=== PATIENT | male | born 1965 | race Caucasian/White ===

== ENCOUNTER 2022-10-06 21:12 | Emergency (ER) | payer MEDICAID ==
[2022-10-06 22:03] LABS: ESTIMATED GFR 71 mL/min (>60); TROPONIN I HIGH SENSITIVITY 22.2 pg/mL (<=60.3)
[2022-10-06 22:19] LABS: CORONAVIRUS COVID-19 NAA NEGATIVE (NEGATIVE)
== END 2022-10-06 23:24 | disposition home or self-care (01) ==
LOC: JP.ED 21:12
DX: K21.00 Gastro-esophageal reflux disease with esophagitis, without bleeding (principal); I10 Essential (primary) hypertension; F17.210 Nicotine dependence, cigarettes, uncomplicated; E66.9 Obesity, unspecified; Z68.34 Body mass index [BMI] 34.0-34.9, adult; Z79.82 Long term (current) use of aspirin; Z79.899 Other long term (current) drug therapy; Z20.822 Contact with and (suspected) exposure to COVID-19
CPT/HCPCS: 0241U; 36415; 71046; 80053; 84484; 85025; 85379; 85610; 85730; 86140; 93005; 99285

== ENCOUNTER 2023-05-07 18:08 | Emergency (ER) | payer MEDICAID ==
[2023-05-07] MEDS ORDERED: Morphine 4 MG/ML Syringe IVPUSH PRN (18:21)
[2023-05-07] MEDS ORDERED: Nitroglycerin 0.4 MG Tab.SL SL PRN (18:21)
[2023-05-07] MEDS ORDERED: Aspirin 81 MG Tab.Chew PO ONE (18:21)
[2023-05-07 18:37] LABS: BASOPHILS ABSOLUTE AUTO 0.08 K/uL (0.00-0.10); BASOPHILS PERCENT AUTO 0.4 % (0.1-1.3); EOSINOPHILS ABSOLUTE AUTO 0.27 K/uL (0.00-0.40); EOSINOPHILS PERCENT AUTO 1.2 % (0.0-5.4); HEMATOCRIT 41.5 % (38.4-49.7); HEMOGLOBIN 14.1 g/dL (12.9-16.9); IMMATURE GRAN ABSOLUTE AUTO 0.17 K/uL (0.00-0.23); IMMATURE GRAN PERCENT AUTO 0.8 % (0.0-0.7); LYMPHOCYTES ABSOLUTE AUTO 3.16 K/uL (0.8-3.3); LYMPHOCYTES PERCENT AUTO 14.2 % (11.4-47.7); MEAN CORPUSCULAR HEMOGLOBIN 29.7 pg (31.6-35.5); MEAN CORPUSCULAR VOLUME 87.4 fL (81.4-99.0); MONOCYTES ABSOLUTE AUTO 2.42 K/uL (0.20-0.90); MONOCYTES PERCENT AUTO 10.9 % (3.3-12.6); NEUTROPHILS ABSOLUTE AUTO 16.15 K/uL (1.0-7.6); NEUTROPHILS PERCENT AUTO 72.5 % (40.0-78.1); PLATELET COUNT,PLT 575 K/uL (130-375); RED BLOOD CELL COUNT 4.75 M/uL (4.14-5.76); WHITE BLOOD CELL COUNT,WBC 22.3 K/uL (3.2-11.0)
[2023-05-07 19:01] LABS: A/G RATIO 0.5 (1.2-2.2); ALANINE AMINOTRANSFERASE,ALT 177 U/L (12-78); ALBUMIN 2.4 g/dL (3.4-5.0); ALKALINE PHOSPHATASE 149 U/L (46-116); ANION GAP 9.2 mmol/L (5.0-14.0); ASPARTATE AMNIOTRANSFERASE,AST 76 U/L (15-37); BILIRUBIN TOTAL 0.3 mg/dL (0.2-1.0); BLOOD UREA NITROGEN,BUN 15 mg/dL (7-18); CALCIUM 8.8 mg/dL (8.5-10.1); CARBON DIOXIDE,CO2 33 mmol/L (21-32); CHLORIDE,CL 95 mmol/L (100-108); CREATININE 1.1 mg/dL (0.8-1.3); EST CRCL DRUG DOSING (CG) 78.91 mL/min; ESTIMATED GFR 78 mL/min (>60); GLUCOSE RANDOM 122 mg/dL (74-106); POTASSIUM,K 3.2 mmol/L (3.6-5.2); PROTEIN TOTAL,TP 7.1 g/dL (6.4-8.2); SODIUM,NA 134 mmol/L (140-148); TROPONIN I HIGH SENSITIVITY 10.6 pg/mL (<=60.3)
[2023-05-07 19:16] LABS: LYME AB IgM Negative (Negative)
[2023-05-07 19:20] LABS: LYME AB IgG Negative (Negative)
[2023-05-07] MEDS ORDERED: Ketorolac 30 MG/ML SDV IVPUSH ONE (19:20)
[2023-05-07] MEDS ORDERED: Sodium Chloride 0.9% 10 ML Syringe FLUSH PRN (19:20)
[2023-05-07] MEDS ORDERED: Levofloxacin/Dextrose 5%-Water 750 MG in Premix Bag 1 BAG IV ONE (19:34)
[2023-05-07] MEDS ORDERED: Sodium Chloride 0.9% 10 ML Syringe FLUSH ONE (20:56)
[2023-05-07] MEDS ORDERED: Iopamidol 612 MG/ML 100 ML Bottle IV SCH (21:00)
[2023-05-07] MEDS ORDERED: Sodium Chloride 0.9% 50 ML IV SCH (21:00)
[2023-05-07] MEDS ORDERED: Acetaminophen 325 MG Tab PO ONE (21:57)
== END 2023-05-07 23:40 | disposition home or self-care (01) ==
LOC: JP.ED 18:08
DX: J18.8 Other pneumonia, unspecified organism (principal); R91.8 Other nonspecific abnormal finding of lung field; E78.00 Pure hypercholesterolemia, unspecified; I10 Essential (primary) hypertension; Z79.899 Other long term (current) drug therapy; Z79.82 Long term (current) use of aspirin
CPT/HCPCS: 36415; 71045; 71260; 80053; 83605; 84145; 84484; 85025; 86140; 86618; 87040; 93005; 96365; 96375; 99285; A9270; J1885; J1956; J2270; J3490; Q9967

== ENCOUNTER 2023-05-13 16:43 | Emergency (ER) | payer MEDICAID ==
[2023-05-13] MEDS ORDERED: Sodium Chloride 0.9% 10 ML Syringe FLUSH PRN (17:17)
[2023-05-13 17:40] LABS: BASOPHILS ABSOLUTE AUTO 0.09 K/uL (0.00-0.10); BASOPHILS PERCENT AUTO 0.3 % (0.1-1.3); EOSINOPHILS ABSOLUTE AUTO 0.05 K/uL (0.00-0.40); EOSINOPHILS PERCENT AUTO 0.2 % (0.0-5.4); HEMATOCRIT 38.4 % (38.4-49.7); HEMOGLOBIN 13.4 g/dL (12.9-16.9); IMMATURE GRAN ABSOLUTE AUTO 0.42 K/uL (0.00-0.23); IMMATURE GRAN PERCENT AUTO 1.6 % (0.0-0.7); LYMPHOCYTES ABSOLUTE AUTO 1.67 K/uL (0.8-3.3); LYMPHOCYTES PERCENT AUTO 6.4 % (11.4-47.7); MEAN CORPUSCULAR HEMOGLOBIN 30.2 pg (31.6-35.5); MEAN CORPUSCULAR HGB CONC 34.9 g/dL (31.6-35.5); MEAN CORPUSCULAR VOLUME 86.5 fL (81.4-99.0); MONOCYTES ABSOLUTE AUTO 2.41 K/uL (0.20-0.90); MONOCYTES PERCENT AUTO 9.2 % (3.3-12.6); NEUTROPHILS ABSOLUTE AUTO 21.43 K/uL (1.0-7.6); NEUTROPHILS PERCENT AUTO 82.3 % (40.0-78.1); PLATELET COUNT,PLT 601 K/uL (130-375); RED BLOOD CELL COUNT 4.44 M/uL (4.14-5.76); WHITE BLOOD CELL COUNT,WBC 26.1 K/uL (3.2-11.0)
[2023-05-13 17:52] LABS: BASE EXCESS ARTERIAL 6.5 mm/L; BICARBONATE,ARTERIAL 28.7 mmol/L (22.0-26.0); CARBOXYHEMOGLOBIN 2.8 % (0.0-1.6); METHEMOGLOBIN 0.2 %; O2 SATURATION ARTERIAL 98.6 % (95.0-98.0); OXYHEMOGLOBIN 95.6 %; PCO2 ARTERIAL 32.9 mmHg (35.0-42.0); TOTAL HEMOGLOBIN 13.7 g/dL (13.5-18.0)
[2023-05-13 18:05] LABS: CALCIUM 8.8 mg/dL (8.5-10.1); CREATININE 1.2 mg/dL (0.8-1.3); EST CRCL DRUG DOSING (CG) 72.34 mL/min; POTASSIUM,K 3.4 mmol/L (3.6-5.2)
[2023-05-13 18:17] LABS: LACTIC ACID 1.3 mmol/L (0.4-2.0); TROPONIN I HIGH SENSITIVITY 13.4 pg/mL (<=60.3)
[2023-05-13 18:24] LABS: ANION GAP 13.4 mmol/L (5.0-14.0); C-REACTIVE PROTEIN 39.57 mg/dL (0.0-0.3)
[2023-05-13] MEDS ORDERED: Piperacillin/Tazobactam 4.5 GM in Sodium Chloride 0.9% 50 ML IV ONE (18:32)
[2023-05-13] MEDS ORDERED: Vancomycin 2 GM in Sodium Chloride 0.9% 500 ML IV ONE ×2 (18:33→20:37)
[2023-05-13] MEDS ORDERED: Ketorolac 30 MG/ML SDV IVPUSH ONE (19:59)
[2023-05-13] MEDS ORDERED: Acetaminophen 325 MG Tab PO ONE (21:47)
== END 2023-05-13 23:45 ==
LOC: JP.ED 16:43
DX: J18.9 Pneumonia, unspecified organism (principal); R91.8 Other nonspecific abnormal finding of lung field; I10 Essential (primary) hypertension; E78.00 Pure hypercholesterolemia, unspecified; J44.9 Chronic obstructive pulmonary disease, unspecified; Z79.82 Long term (current) use of aspirin; Z87.891 Personal history of nicotine dependence; Z79.899 Other long term (current) drug therapy
CPT/HCPCS: 36415; 36600; 71250; 80048; 82803; 83605; 83880; 84145; 84484; 85025; 85379; 86140; 86606; 86612; 87040; 87635; 93005; 96365; 96366; 96375; 99285; J1885; J2543; J3370; J3490; J7040; U0002

== ENCOUNTER 2023-09-28 14:45 | Emergency (ER) | payer MEDICAID | END 2023-09-28 16:43 | disposition home or self-care (01) | LOC: JP.ED 14:45 | DX: M75.42 Impingement syndrome of left shoulder (principal); M75.22 Bicipital tendinitis, left shoulder; M72.2 Plantar fascial fibromatosis; R53.83 Other fatigue; G47.9 Sleep disorder, unspecified; E78.00 Pure hypercholesterolemia, unspecified; I10 Essential (primary) hypertension; J44.9 Chronic obstructive pulmonary disease, unspecified; Z79.899 Other long term (current) drug therapy | CPT/HCPCS: 99283 ==

== ENCOUNTER 2024-05-21 15:12 | Emergency (ER) | payer MEDICAID | END 2024-05-21 16:30 | disposition home or self-care (01) | LOC: JP.ED 15:12 | DX: K04.7 Periapical abscess without sinus (principal); I10 Essential (primary) hypertension; Z79.899 Other long term (current) drug therapy | CPT/HCPCS: 99283 ==

== ENCOUNTER 2025-04-26 17:46 | Emergency (ER) | payer MEDICAID | END 2025-04-26 18:49 | disposition home or self-care (01) | LOC: JP.ED 17:46 | DX: S83.92XA Sprain of unspecified site of left knee, initial encounter (principal); E78.00 Pure hypercholesterolemia, unspecified; I10 Essential (primary) hypertension; J44.9 Chronic obstructive pulmonary disease, unspecified; Z79.899 Other long term (current) drug therapy; X50.9XXA Other and unspecified overexertion or strenuous movements or postures, initial encounter | CPT/HCPCS: 73562-26-LT; 73562-LT; 99283 ==